=== PATIENT | male | born 1940 | race Caucasian/White ===

== ENCOUNTER 2017-01-12 19:57 | Inpatient (IN) | payer MEDICARE, BC ==
[~2017-01-12] VITALS: Ht 180.3 cm; Wt 99.5 kg
--- NOTE | ~2017-01-12 | DS ---
PATIENT'S NAME: YANICK WEATHERS [facility] AGE: 76 Y [address] ROOM: [address] [place], [place] [address] LOCATION: GPCU ADMIT DATE: 01/14/2017 Discharge Summary DISCHARGE DATE: 01/17/2017 FAMILY PHYSICIAN: Lashawn Vargas PA-C ATTENDING PHYSICIAN: Humphrey Schmidt DISCHARGE DIAGNOSES: 1. Wide-complex tachycardia. 2. High-risk medication in the form of Mexitil. 3. Atrial fibrillation. 4. Long-term anticoagulation. 5. Coronary artery disease. 6. Paroxysmal atrial fibrillation. 7. Hyperlipidemia. PROCEDURES: Echocardiogram done on 01/13/2017, EF 50% to 55%, mild to moderate mitral valve regurgitation, moderate tricuspid regurgitation, mild pulmonary hypertension. DC cardioversion for ventricular tachycardia on 01/12/2017. HOSPITAL COURSE: This is a 76-year-old gentleman with a history of coronary artery disease and atrial fibrillation. He was admitted from his home [facility] when he was not feeling well. He denied any chest pain or shortness of breath with it, but he was found to be little lightheaded, and his EKG showed a wide-complex tachycardia, consistent with ventricular tachycardia. He was then transferred to [facility] for more definitive care. He was initially admitted as observation and was started on a Cardizem infusion at 5 mg an hour and then amiodarone 150 mg IV over 10 minutes, followed by the protocol infusion. He converted to a normal sinus rhythm, and then a few hours later converted back into the wide-complex tachycardia. The amiodarone with then increased to 1 mg/hour continuously, and he was placed n.p.o. He did undergo a DC cardioversion on 01/14/2017, and he did revert back into a normal sinus rhythm. Later on that day, he did go back into wide- complex tachycardia, ventricular tachycardia. He was given intermittent boluses of Lopressor IV, and eventually was also initiated on mexiletine 150 mg p.o. t.i.d. The amiodarone drip was also continued at 0.5 mg/minutes and then discontinued, and he was placed on 200 mg p.o. every day. He was having intermittent VT alternating with sinus rhythm after these medications were initiated. Electrolytes were monitored and potassium was replaced. He eventually went into a sinus rhythm but continued to have intermittent bouts of ventricular tachycardia, that were not as long in duration as they had been. On 01/17/2017, he was discharged to home with the following medications. PATIENT'S NAME: YANICK WEATHERS [facility] AGE: 76 Y [address] ROOM: [place] [address] LOCATION: GPCU ADMIT DATE: 01/14/2017 Discharge Summary DISCHARGE DATE: 01/17/2017 FAMILY PHYSICIAN: Lashawn Vargas PA-C ATTENDING PHYSICIAN: Humphrey Schmidt MEDICATIONS: 1. Amiodarone 200 mg every day. 2. Finasteride 5 mg every day. 3. Metoprolol 25 mg every day. 4. Furosemide 20 mg daily. 5. [place]-3 fatty acid one capsule every day. 6. Warfarin 2 mg once a week and 4 mg the rest of the time. 7. Tramadol 50 mg b.i.d. 8. Atorvastatin 40 mg every day. 9. Omeprazole 20 mg every day. 10. Docusate sodium 100 mg twice a day. 11. Mexiletine 150 mg 3 times a day. 12. Potassium chloride 10 mEq tablets. He is to take 2 of them daily. He is to follow up with Dr. Schmidt in [place] on January 27, 2017. The patient did verbalize understanding of his dismissal instructions. JOHN WALKER APRN FOR MD PAOLA CALHOUN/lyndseyl /[id number] d: 01/31/17216 t: 02/06/17 0931, DISCHARGE SUMMARY
--- NOTE | ~2017-01-12 | ECHO ---
Transthoracic Echocardiography Report (TTE) Demographics Patient Name YANICK WEATHERS Date of Study 01/13/2017 Patient Number [id number] Visit Number [id number] Date of 1940 Room Number G6336 Accession Number [id number] Gender Male Age 76 year(s) Referring Roxana Yin MD [employer] Instrument Repairer Pato Azul Physician Physician Interpreting Roxana Yin MD [employer] Water Filler Physician Supervising Ordering Physician Roxana Yin MD, MD/P Nurse Stress Retail Delivery Driver Conclusions Contractility Score Summary Global Left Ventricular Hypokinesis was noted. Summary The estimated left ventricular ejection fraction is 50-55%. Moderate concentric left ventricular hypertrophy. Diastolic function indeterminate due to patient's arrhythmia. The left atrium is mildly dilated. The right atrium is mild to moderately dilated. Mild-moderate mitral regurgitation by color Doppler. There is mild aortic regurgitation by color Doppler. Moderate tricuspid regurgitation by color Doppler. There is mild pulmonary hypertension. The pulmonary pressure (RVSP) is 44 mmHg. Procedure Type of Study TTE procedure:2D Echocardiogram, M-Mode, Doppler , Color Doppler. Procedure Date Date: 01/13/2017 Start: 09:25 AM Study Location: Inpatient Portable Technical Quality: Adequate visualization Indications:Atrial Fibrillation w/ RVR. Appropriate Use Criteria: 9 Patient Status: Routine HR: 49 bpm BP: 115/75 mmHg Allergies - No known allergies. M-Mode/2D Measurements LV Diastolic Dimension: 4.55 cm LV Systolic Dimension: 3.15 cm LV Septum Diastolic: 1.48 cm LV PW Diastolic: 1.45 cm AO Root Dimension: 3 cm Cardiac Output: 3.35 l/min LA Dimension: 3.7 cm EF Estimated: 45 % LVOT: 2.2 cm LVOT VTI: 18 cm RV Base: 2.72 cm LV Stroke volume: 68.39 ml RV Length: 7.69 cm TAPSE: 1.71 cm TDI-S': 10.4 cm/s Doppler Measurements AV Peak Velocity: 0.94 m/s MV Peak E-Wave: 0.83 m/s AV Peak Gradient: 3.51 mmHg AV Mean Gradient: 2 mmHg MV P1/2t: 48 msec LVOT Peak Velocity: 0.89 m/s TR Velocity:3.19 m/s PV Peak Velocity: 0.75 m/s TR Gradient:40.7 mmHg PV Peak Gradient: 2.26 mmHg Estimated RAP:3 mmHg Estimated PASP: 43.7 mmHg Estimated RVSP: 44 mmHg A' Septal Velocity: 0.06 m/s E' Septal Velocity: 0.04 m/s E' Lateral Velocity: 0.09 m/s Findings Left Ventricle The left ventricle is normal in size . Moderate concentric left ventricular hypertrophy. Diastolic function indeterminate due to patient's arrhythmia. Right Ventricle Normal right ventricle structure and function. Left Atrium The left atrium is mildly dilated. Right Atrium The right atrium is mild to moderately dilated. IVC measures 2.12 cm with inspiratory collapse. Mitral Valve Mild-moderate mitral regurgitation by color Doppler. Mild mitral annular calcification. Mild calcification of the mitral valve. Aortic Valve The aortic valve is mildly sclerotic. There is mild aortic regurgitation by color Doppler. Tricuspid Valve Moderate tricuspid regurgitation by color Doppler. There is mild pulmonary hypertension. The pulmonary pressure (RVSP) is 44 mmHg. Pulmonic Valve Normal pulmonic valve structure and function. Pericardial Effusion No evidence of pericardial effusion. Miscellaneous Visualized portions of the aortic root and ascending aorta appear normal in size. Pleural Effusion No evidence of pleural effusion. Contractility Score LV regional wall motion:(0-Non visualized 1-Normal 2-Hypokinesis 3-Akinesis 4-Dyskinesis 5-Aneurysm) Signature dtt: Humphrey Schmidt (cardio) dtd: 01/13/17 0925 Physician Self Edit
--- NOTE | ~2017-01-12 | HP ---
PATIENT'S NAME: YANICK WEATHERS [facility] AGE: 76 Y [address] ROOM: [place] [address] LOCATION: GPCU ADMIT DATE: 01/12/2017 History & Physical DISCHARGE DATE: FAMILY PHYSICIAN: Lashawn Vargas PA-C ATTENDING PHYSICIAN: Humphrey Corado DATE OF SERVICE: HISTORY OF PRESENT ILLNESS: This is a 76-year-old gentleman well known to Dr. Corado with a history of coronary artery disease and atrial fibrillation. He presented to the emergency room on the day of admission with not feeling well. He was very cold and clammy. He denied any chest pain or shortness of breath, but he was a little bit lightheaded but denied any presyncope. He had an EKG done which showed white complex tachycardia consistent with ventricular tachycardia. Therefore, he was transferred to [facility] for further evaluation. Last June, he had an echocardiogram and a heart cath with normal coronaries and normal LV function. He has had a history of ischemic cardiomyopathy, but his EF normalized. PAST MEDICAL HISTORY: 1. Coronary artery disease. 2. Hypertension. 3. Paroxysmal atrial fibrillation. 4. Ischemic cardiomyopathy. 5. Hyperlipidemia. 6. Daytime hypersomnolence with a normal sleep study. 7. High-risk medications in the form of amiodarone. 8. Gastroesophageal reflux. 9. Long-term anticoagulation on warfarin. PAST SURGICAL HISTORY: 1. Left inguinal hernia repair. 2. Left heart catheterization with PTCA stent LAD in 2004, left heart catheterization January of 2012, left heart catheterization July 01, 2016, DC cardioversion 08/18/2016. 3. Large posterior subcutaneous scalp mass removal 03/2015. 4. Right total knee 07/10/2014. ALLERGIES: NONE TO MEDICATION. CURRENT MEDICATIONS: PATIENT'S NAME: YANICK WEATHERS [facility] AGE: 76 Y [address] ROOM: [place] [address] LOCATION: GPCU ADMIT DATE: 01/12/2017 History & Physical DISCHARGE DATE: FAMILY PHYSICIAN: Lashawn Vargas PA-C ATTENDING PHYSICIAN: Humphrey Corado 1. Amiodarone 200 mg p.o. daily now on IV amiodarone. 2. Lipitor 40 mg every day. 3. Docusate sodium 100 mg p.o. b.i.d. 4. Proscar 5 mg daily. 5. Lasix 10 mg b.i.d. 6. Metoprolol tartrate 25 mg daily. 7. [place]-3 fatty acids daily. 8. Omeprazole 20 mg daily. 9. Tramadol 50 mg p.o. b.i.d. p.r.n. 10. Warfarin 4 mg six days a week and 2 mg one day a week. SOCIAL HISTORY: He is . He denies alcohol use. He has a remote tobacco use. He would smoke 3 packs of cigarettes a day for 50 years. He quit in 1999. FAMILY HISTORY: Mother had heart disease and CVA at an older age. Father had alcoholism. He had a brother with heart disease as well. REVIEW OF SYSTEMS: GENERAL: He has been having problems with increased fatigue. HEAD: No history of headaches. EYES: He wears corrective lenses. EARS: No problems with hearing. NOSE: No epistaxis or rhinorrhea. MOUTH: No gingival bleeding. THROAT: Denies sore throat, hoarseness, or difficulty swallowing. He does have a full set of dentures. PULMONARY: No history of cough or hemoptysis. GASTROINTESTINAL: Negative for nausea, vomiting, diarrhea. No melena. No history of elevated liver enzymes or yellow jaundice. GENITOURINARY: He has problems with BPH and nocturia 2 times at night. MUSCULOSKELETAL: No complaints of arthralgias or myalgias on statin therapy. NEUROLOGIC: He denies TIA or CVA symptomatology. PHYSICAL EXAMINATION: VITAL SIGNS: He is 5 feet 11 inches. His weight was 216. Blood pressure is 127/87, his heart rate is 158. SKIN: Cool and dry. LUNGS: Sounds are clear without evidence of wheezes, rales, or rhonchi. CV: Tachy with regular rhythm without murmur. EXTREMITIES: Show no peripheral edema. ASSESSMENT: 1. Ventricular tachycardia. We are going to start him on Cardizem and IV PATIENT'S NAME: YANICK WEATHERS [facility] AGE: 76 Y [address] ROOM: [place] [address] LOCATION: [facility] ADMIT DATE: 01/12/2017 History & Physical DISCHARGE DATE: FAMILY PHYSICIAN: Lashawn Vargas PA-C ATTENDING PHYSICIAN: Humphrey Corado amiodarone. We will check a mag level as well. His potassium was 4.0. If he does not convert through the night, we will plan on a DC cardioversion. 2. Coronary artery disease. He is to continue with his current medications as outlined above. 3. Hypertension: His blood pressure is under pretty good control. We will continue same medications. The assessment, plan, history of present illness, and physical exam are per Dr. Jose M Corado. We would like to thank Mer Reid for allowing us to participate in the patient's care. JOHN WALKER APRN FOR HUMPHREY CORADO MD TGP/modl /[id number] D: [id number] T: [id number] HISTORY & PHYSICAL
--- NOTE | ~2017-01-12 | OR ---
PATIENT'S NAME: YANICK WEATHERS [facility] AGE: 76 Y [address] ROOM: [place] [address] LOCATION: GPCU ADMIT DATE: 01/12/2017 OR/Procedure Report DISCHARGE DATE: FAMILY PHYSICIAN: Lashawn Vargas PA-C ATTENDING PHYSICIAN: Humphrey Schmidt SURGEON: Jessica Hobbs MD GOVERNMENT AFFAIRS SPECIALIST: DATE OF PROCEDURE: 01/14/2017 INDICATIONS: Ventricular tachycardia with rates in the 150s. Continues to remain in VT despite iv amiodarone/betablocker therapy. PROCEDURE PERFORMED: The patient was brought to the [facility] lap. Anesthesia provided sedation with propofol. Once the patient was adequately sedated, pads were placed in the anterior-posterior position and he received synchronized cardioversion at 200 joules x1 attempt and that converted him to normal sinus rhythm from VT at 150 bpm. IMPRESSION: Ventricular tachycardia since am today with rates in 150's, status post direct current cardioversion with synchronized cardioversion at 200 joules x1 attempt with successful conversion to normal sinus rhythm. Please continue warfarin for atrial fibrillation. Continue amiodarone drip at 0.5 mg/minute for another 18 hours. The patient tolerated the procedure well without any acute complications. Thank you Dr. Schmidt for allowing us to participate in the care of Mr. Weathers. JESSICA HOBBS MD AT/modl /[id number] PATIENT'S NAME: YANICK WEATHERS [facility] AGE: 76 Y [address] ROOM: [place] [address] LOCATION: GPCU ADMIT DATE: 01/12/2017 OR/Procedure Report DISCHARGE DATE: FAMILY PHYSICIAN: Lashawn Vargas PA-C ATTENDING PHYSICIAN: Humphrey Schmidt CC: Humphrey Schmidt MD d: 01/14/17 0927 t: 04/27/17 1233, OPERATIVE SUMMARY
[~2017-01-12 19:57] MED LIST changes: -COLACE100 MG PO; -COREG 3.1253.125 MG PO; -LEVOTHROID (SY50 MCG PO; -MAG-OX-400(241400 MG PO; -MEXITIL150 MG PO; -POTASSIUM CHLO20 ME1 PO
[2017-01-12] MEDS ORDERED: PRILOSEC20 MG PO (21:55)
[2017-01-12] MEDS ORDERED: COLACE100 MG PO (21:57)
[2017-01-13 00:02] LABS: MAGNESIUM 2.1 mg/dL (1.8-2.6)
--- NOTE | 2017-01-13 00:18 | NUR ---
Patient admitted to PCU from [facility] for ventricular tachycardia. Patient is A/Ox3 and asymptomatic aside from some diaphoresis. Vitals upon arrival were: 98.1 temp, 127/87/103, 158bpm, 98% on 2L NC, 18 respirations. Patient has no complaints of chest pain or any other pain. Patient was receiving cardizem and amiodarone en route which was resumed with Dr. Schmidt's orders. IVs in both hands have good blood return. Patient is a 1 person assist but is currently on bedrest with use of commode. Dr. Schmidt plans to cardiovert the patient in the AM if the medications do not flip him back into NSR.
[2017-01-13 05:19] LABS: ALBUMIN 3.6 gm/dL (3.5-5.0); TOTAL PROTEIN 7.3 g/dL (6.0-8.4)
--- NOTE | 2017-01-13 05:28 | NUR ---
Significant Event: Patient admitted with ventricular tachycardia. Asymptomatic aside from diaphoresis. Cardizem, amiodarone, and heparin gtts initiated. Patient did get up to the bedside commode once and felt lightheaded with this activity. Around 0300 patient converted to SR with frequent PVC's and a 1st degree block. Rates 40s-50s. Patient is also asymptomatic with the bradycardia. Dr. Schmidt notified, cardizem d/c'd, amiodarone decreased to 0.5mg early. Rates remain 40s-50s. Follow up: Amiodarone gtt off at 2230 this evening unless orders received before.
--- NOTE | 2017-01-13 11:44 | NUR ---
Introduced self and role of care management to patient. He lives with his in [facility]. He states that he is able to do all his own ADL's. He states that his does assist if needed. He plans on returning home on discharge. He denies any needs at this time. Will continue to follow.
--- NOTE | 2017-01-13 17:46 | NUR ---
PATIENT WAS ON 2 LITERS O2 THIS MORNING, BUT WE TOOK HIM OFF AT 1210 AND HE IS CURRENTLY ON RA. PATIENT REPORTS HE HAD A SMALL BM TODAY AND VOIDED AT THE SAME TIME. PATIENT WAS ON HEPARIN AND AMIO GTT THIS MORNING, AND IT WAS DC'S AT 0930. PATIENT IS CURRENTLY SALINE LOCKED. PATIENT GETS UP ADLIB. HR HAS BEEN IN THE HIGH 40'S AND LOW 50'S ALL DAY. PATIENT IS CURRENTLY UP IN HIS CHAIR WATCHING TV. PATIENT ATE A LATE BREAKFAST, SO HE SKIPPED LUNCH. PATIENT HAD AN ECHO BEFORE BREAKFAST.
[2017-01-14 05:06] LABS: ALBUMIN 3.4 gm/dL (3.5-5.0); ANION GAP 12.1 (10.0-19.0); CALCIUM 8.2 mg/dL (8.5-10.5); CREATININE 1.3 mg/dL (0.6-1.3); POTASSIUM 4.1 mMol/L (3.7-5.1)
[2017-01-14 05:07] LABS: PHOSPHORUS 1.8 mg/dL (2.5-4.9)
--- NOTE | 2017-01-14 05:15 | NUR ---
Significant Event: PATIENT IS A/O X3. VSS. HR 50-140'S. SBP 100-140'S. AFEBRILE. 02 SATS IN MID 90'S ON RA. NO C/O PAIN. AT 0200 STARTED TO HAVE BEATS OF WIDE COMPLEX TACHYCARDIA. RHYTHM SUSTAIN AND HR IN 130'S STARTING AT 0349. DR CORADO NOTIFIED AND EKG OBTAINED AND STARTED BACK ON IV AMIODARONE. UP WITH SBA. BOWELS ACTIVE. VOIDS PER URINAL. HAS SOME URINARY RETENTION. IV'S TO RIGHT AND LEFT HANDS. AMIODARONE AT 1MG/MIN TO RIGHT HAND X6 HRS. Follow up: CONTINUE TO MONITOR. LIKELY TO STAY ANOTHER NIGHT.
--- NOTE | 2017-01-14 16:47 | NUR ---
A/Ox3. VSS on RA. Lungs clear. Cardioversion this am to correct wide complex tachy, SR immediately following cardioversion. Shortly after, pt went back into wide complex tachy and was on and off throughout the day. At 1500, pt went back into SR and has been renae SR ever since. Voiding per urinal with adequate UOP. Large liquidy BM's x2 this shift. Up SB assist. IV to L hand running amio gtt.
--- NOTE | 2017-01-15 05:17 | NUR ---
Significant Event: PATIENT IS A/O X3. VSS. HR 50-130'S. SBP 110-150'S. AFEBRILE. 02 SATS IN LOW TO MID 90'S ON RA. NO C/O PAIN. LUNGS CLEAR THROUHGOUT. UP WITH SBA. BOWELS ACTIVE. VOID PER URINAL. LEFT HAND IV WITH AMIODARONE AT 0.5 MG/MIN. STAY IN SR MOST OF SHIFT WITH OCCASIONAL SPURTS OF WIDE COMPLEX TACHY. Follow up: CONTINUE TO MONITOR. POSSIBLE TRANSFER OUT TODAY?
--- NOTE | 2017-01-15 17:14 | NUR ---
A/Ox3. VSS on RA. In and out of wide complex tachy throughout the day, longest duration was 2 hours. Mexiletene PO ordered by Dr. Schmidt for arrhythmia. Voiding per urinal with adequate UOP. Soft BMs x2 this shift. Up SB assist. IV to R anterior FA running amio gtt. Follow up: Monitor. Waiting for possible transfer.
--- NOTE | 2017-01-16 05:22 | NUR ---
Significant Event: PATIENT IS A/O X3. VSS. HR 50-130'S. SBP 90-140'S. AFEBRILE. 02 SATS IN LOW TO MID 90'S ON RA. NO C/O PAIN. LUNGS CLEAR/DIM THROUGHOUT. UP WITH SBA. BOWELS ACTIVE. VOIDS PER URINAL. RIGHT FOREARM IV WITH AMIODARONE GOING AT 0.5MCG UNTIL PHYSIICAN SEES IN AM. Follow up: CONTINUE TO MONITOR.
[2017-01-16 07:00] LABS: ANION GAP 12.4 (10.0-19.0); BLOOD UREA NITROGEN 23 mg/dL (6-24); CALCIUM 8.4 mg/dL (8.5-10.5); CHLORIDE 108 mMol/L (96-110); CO2 22 mMol/L (22-32); ESTIMATED GFR (MDRD EQUATION) > 60; MAGNESIUM 2.1 mg/dL (1.8-2.6); PHOSPHORUS 2.5 mg/dL (2.5-4.9); POTASSIUM 3.4 mMol/L (3.7-5.1); SODIUM 139 mMol/L (135-145)
[2017-01-16 11:01] LABS: INR - (THERAPEUTIC) 1.87 (0.92-1.07); PROTIME 19.8 SECONDS (9.8-11.4)
--- NOTE | 2017-01-16 16:04 | NUR ---
Significant Event: PT A/O X3. VSS. ON RA SATS >90%. AT BEGINNING OF SHIFT PATIENT REMAINED IN WIDE COMPLEX TACHYCARDIA RHYTHM, MID MORNING CONVERTED TO SINUS KHRIS AND HAS BEEN THERE EVER SINCE. DC'D AMIODARONE GTT AND STARTED PO AMIODARONE.INR 1.8 TODAY, WILL GIVE A TOTAL OF 6MG OF COUMADIN. GAVE 40MEQ PO K+ FOR A K+ OF 3.4. IV TO RA FOREARM INFLITRATED AMIODARONE, NEW IV STARTED IN L) FOREARM, IS NOW SALINE LOCKED. ICE PACKS TO BILATERAL INFILTRATES OFF AND ON THROUGHOUT THIS SHIFT. UP IN ROOM AND IN GOYAL. VERY PLEASANT AND COOPERATIVE WITH CARES. Follow up: POSSIBLE DC TO HOME TOMORROW? BROTHER IN LAW WILL BE ABLE TO COME AND BLAST FURNACE KEEPER HELPER.
--- NOTE | 2017-01-17 04:29 | NUR ---
A/O. HR 50s. 1 EPISOIDE ARRHYTHMIA FOR ABOUT 5MIN THEN SELF CONVERTED. SBP 110-150s. AFEBRILE. DENIES PAIN. UP SBA TO BATHROOM. PATIENT REPORT BMx1. POSSIBLE DISMISSAL TODAY.
[2017-01-17 04:38] LABS: TOTAL PROTEIN 6.5 g/dL (6.0-8.4)
[2017-01-17 04:42] LABS: TOTAL BILIRUBIN 0.6 mg/dL (0.0-1.5)
[2017-01-17] MEDS ORDERED: MEXITIL150 MG PO (10:10)
[2017-01-17] MEDS ORDERED: POTASSIUM CHLO20 ME1 PO (10:13)
--- NOTE | 2017-01-17 12:49 | NUR ---
PATIENT A/OX3, VSS ON ROOM AIR. PT. UP AD DAVON IN ROOM. PT. HAD SEVERAL EPISODES OF TACHYCARDIA THIS AM HR'S UP TO 110'S, THEN WENT INTO HIS WIDE COMPLEX VT RHYTHM FROM [id number] WITH HR'S UP TO 130'S, THEN BACK TO SINUS KHRIS, DID HAVE 1 QUICK EPISODE AFTER THIS OF THE VT, THEN WENT BACK TO SB RIGHT AWAY, NO EPISODES SINCE, DR. CORADO CALLED AT 1200 AND SAID IT WAS OKAY FOR PATIENT TO D/C TO HOME. PT. DID WALK IN HALLS X1 THIS AM. NEW MEDICATIONS, DISMISSAL INSTRUCTIONS GONE OVER WITH PATIENT AND , NO FURTHER QUESTIONS AT THIS TIME. IV REMOVED FROM LEFT FA WITHOUT DIFFICLTLY. ALL BELONGINGS SENT HOME WITH PATIENT.
== END 2017-01-17 12:25 | disposition disaster alternative care site (69) | DRG 310 ==
LOC: GPCU 19:57
PROVIDERS: Nurse Practitioner Acute Care; ADMIT Internal Medicine Interventional Cardiology
PROC: 5A2204Z Restoration of Cardiac Rhythm, Single (ICD-10-PCS; principal; 2017-01-14)
DX: I47.2 Ventricular tachycardia (principal); I25.5 Ischemic cardiomyopathy; I10 Essential (primary) hypertension; I25.10 Atherosclerotic heart disease of native coronary artery without angina pectoris; I48.0 Paroxysmal atrial fibrillation; E78.5 Hyperlipidemia, unspecified; K21.9 Gastro-esophageal reflux disease without esophagitis; Z79.01 Long term (current) use of anticoagulants; Z87.891 Personal history of nicotine dependence
CPT/HCPCS: G0378; J0282; J1644; J7030; J7050

== ENCOUNTER → 2017-01-12 | Outpatient (CLI) | payer MEDICARE, BC ==
[~2017-01-12] MED LIST: ASPIRIN LO-DOSE81 MG PO; COLACE100 MG PO; CORDARONE,PACE200 MG PO; COREG 3.1253.125 MG PO; COUMADIN ** 9/62 MG PO; COUMADIN 4MG **4 MG PO; FISH OIL1000 MG PO; LASIX20 MG PO; LEVOTHROID (SY50 MCG PO; LIPITOR40 MG PO; LOPRESSOR25 MG PO; MAG-OX-400(241400 MG PO; MEXITIL150 MG PO; MONOPRIL10 MG PO; POTASSIUM CHLO20 ME1 PO; PRILOSEC20 MG PO; PROSCAR5 MG PO; STOOL SOFTENER100 MG PO; TRICOR 160 MG160 MG PO; ULTRAM50 MG PO; ZOCOR40 MG PO
== END | disposition disaster alternative care site (69) ==
LOC: GAMB 21:10
DX: I47.1 Supraventricular tachycardia (principal)
CPT/HCPCS: A0425; A0428

== ENCOUNTER 2017-02-15 10:00 | Inpatient (IN) | payer MEDICARE, BC ==
[~2017-02-15] VITALS: Ht 180.3 cm; Wt 98.5 kg
--- NOTE | ~2017-02-15 | CON ---
PATIENT'S NAME: YANICK WEATHERS [facility] AGE: 76 Y [address] ROOM: [place] [address] [facility] ADMIT DATE: 02/15/2017 Consultation DISCHARGE DATE: FAMILY PHYSICIAN: Lashawn Vargas PA-C ATTENDING PHYSICIAN: Meet CORTEZ REFERRING PHYSICIAN: JAMAR GATES MD CARDIOLOGY CONSULT REFERRING PHYSICIAN: Dr. Cortez. REASON FOR CONSULT: Ventricular tachycardia. HISTORY OF PRESENT ILLNESS: Mr. Weathers is a pleasant 76-year-old male with history of ventricular tachycardia. The patient was previously also hospitalized for ventricular tachycardia. The patient has had repeated cardiac catheterizations. He stated that in 2004, he had balloon angioplasty, and subsequently, he had cardiac catheterization in January of 2012 and in June 2016, which showed mild nonobstructive coronary artery disease. The patient stated that today at 3:00 a.m., he woke up, and his heart rate was 174 beats per minute. He took medications, then his heart rate decreased to 80s and later again his heart rate was in 170s, and at around 6:00 a.m., he woke up his , and 911 was called, and he was taken to [place] [facility]. He was found to be in wide- complex tachycardia, and the patient was given adenosine with no response. I spoke with the ER physician, and in view of his blood pressure dropping, we advised DC cardioversion. Following DC cardioversion, his rhythm changed to sinus rhythm, and he was brought here for further management. Presently, he is asymptomatic. gambling monitor is showing frequent PVCs. REVIEW OF SYSTEMS: The patient denied any recent change in vision. No history of nausea or vomiting. History of diarrhea is present. No history of fever. History of sweating is present. No history of syncope or presyncope. No history of chest pain. Review of other systems is essentially negative. PAST MEDICAL HISTORY: Coronary artery disease, hypertension, paroxysmal atrial fibrillation, gastroesophageal reflux disease, long-term anticoagulation with warfarin. PAST SURGICAL HISTORY: Left inguinal hernia repair and right total knee replacement. CURRENT MEDICATIONS: PATIENT'S NAME: YANICK WEATHERS [facility] AGE: 76 Y [address] ROOM: [place] [id number] LOCATION: [facility]U ADMIT DATE: 02/15/2017 Consultation DISCHARGE DATE: FAMILY PHYSICIAN: Lashawn Vargas PA-C ATTENDING PHYSICIAN: Meet CORTEZ Please see MAR. His cardiac medications include: 1. Amiodarone 200 mg daily. 2. Atorvastatin 40 mg daily. 3. Carvedilol 3.125 mg twice daily. 4. Furosemide 10 mg twice daily. 5. Levothyroxine 50 mcg daily. 6. Metoprolol 25 mg daily. 7. Potassium 20 mEq daily. 8. Warfarin 2 mg daily and 4 mg 6 times a week. FAMILY HISTORY: His brother has heart disease and his mother had a stroke. SOCIAL HISTORY: The patient is . He lives with his . He has remote tobacco use. No alcohol use. PHYSICAL EXAMINATION: GENERAL: He is awake, alert, and oriented, in no distress. VITAL SIGNS: His pulse rate is 58 beats per minute, blood pressure is 136/69 mmHg, temperature 97.8, respiratory rate 16. HEENT: His head is atraumatic and normocephalic. Tongue is moist. NECK: No significant jugular venous distention is present. CARDIOVASCULAR: S1, S2 are audible. They are regular in rate and rhythm. Grade 2/6 ejection systolic murmur is audible. RESPIRATORY: Bilateral vesicular breath sounds are audible with no adventitious sounds. ABDOMEN: Mildly distended. Soft. Nontender. Bowel sounds are present. EXTREMITIES: Showed no significant pedal edema. NEUROLOGIC: The patient is awake, alert, and oriented. No focal neurological deficits noted. SKIN: Warm and dry. LABORATORY DATA: Sodium 144, potassium 4.3, chloride 111, CO2 of 25, calcium 8.4, BUN 15, creatinine 1.2. AST 43, ALT 60, magnesium 2.1. IMAGING DATA: His last echocardiogram in December 2014 showed left ventricular ejection fraction of 50% to 55%. Moderate concentric LVH. Mild to moderate mitral regurgitation. Mild aortic regurgitation. Moderate tricuspid regurgitation. Mild pulmonary hypertension. Cardiac catheterization in June 2016 showed mild nonobstructive coronary artery disease. ASSESSMENT AND PLAN: PATIENT'S NAME: YANICK WEATHERS [facility] AGE: 76 Y [address] ROOM: [address] [address] LOCATION: [facility]PCU ADMIT DATE: 02/15/2017 Consultation DISCHARGE DATE: FAMILY PHYSICIAN: Lashawn Vargas PA-C ATTENDING PHYSICIAN: Meet CORTEZ 1. Wide-complex tachycardia at 170 beats per minute, likely ventricular tachycardia, status post cardioversion. The patient is on amiodarone 200 mg p.o. daily. Per nursing, the patient received amiodarone bolus there. We will start the patient on IV amiodarone drip. Monitor QTc interval. His telemetry presently shows frequent PVCs. His EKG showed prolonged [place] interval. The patient is on metoprolol and carvedilol. We will hold beta blockers in view of resting bradycardia. We will monitor magnesium and potassium levels and keep magnesium levels more than 2 and potassium level more than 4 mEq per liter. 2. Nonobstructive coronary artery disease. Continue medical therapy. We will start the patient on aspirin 81 mg daily. Continue statins. Restart beta blockers gradually as tolerated. 3. Paroxysmal atrial fibrillation. Continue anticoagulation. The plan of care was discussed with the patient and the nursing staff, and the patient's and the hospitalist team. We will follow the patient along with you, and Dr. Schmidt's team will assume care from Thursday a.m. MD LESLI MOHR/natalia /[id number] d: 02/15/[id number] t: 03/05/17 1733, CONSULTATION REPORT
--- NOTE | ~2017-02-15 | ECHO ---
Transthoracic Echocardiography Report (TTE) Demographics Patient Name YANICK WEATHERS Date of Study 02/17/2017 Patient Number [id number] Visit Number [id number] Date of 1940 Room Number G6306 Accession Number [id number] Gender Male Age 76 year(s) Referring Alicia PINEDO [employer] Manager Debbie Renae RVT, Physician RDCS Physician Interpreting Roxana Yin MD Lace Pinner Physician Supervising Ordering Physician Dana Dsouza MD/MLP Nurse Stress Certified Control Systems Technician Conclusions Summary The estimated left ventricular ejection fraction is 50%. Mild concentric left ventricular hypertrophy. Diastolic function indeterminate due to patient's arrhythmia. Mildly dilated right ventricle with normal function. The left atrium is mildly dilated. The right atrium is moderately dilated. Mild mitral annular calcification. Mild-moderate mitral regurgitation by color Doppler. There is mild aortic regurgitation by color Doppler. Moderate tricuspid regurgitation by color Doppler. There is severe pulmonary hypertension. The pulmonary pressure (RVSP) is 57 mmHg. Procedure Type of Study TTE procedure:2D Echocardiogram. Procedure Date Date: 02/17/2017 Start: 02:11 PM Study Location: Inpatient Portable Technical Quality: Adequate visualization Indications:Ventricular tachycardia. Appropriate Use Criteria: 8 Patient Status: Routine Rhythm: NSR HR: 58 bpm BP: 135/70 mmHg Allergies - No known allergies. M-Mode/2D Measurements LV Diastolic Dimension: 4.48 cm LV Systolic Dimension: 3.31 cm LV Septum Diastolic: 1.48 cm LV PW Diastolic: 1.43 cm AO Root Dimension: 2.7 cm Cardiac Output: 3.37 l/min AV Cusp Separation: 2.4 cm RV Diastolic Dimension: 3.47 cm LA volume: 64 ml LVOT: 2.3 cm RV Base: 4.34 cm LVOT VTI: 14 cm RV Mid: 3.79 cm LV Stroke volume: 58.14 ml TAPSE: 2.42 cm TDI-S': 12.1 cm/s Doppler Measurements AV Peak Velocity: 1.01 m/s MV Peak E-Wave: 0.94 m/s AV Peak Gradient: 4.08 mmHg MV Peak A-Wave: 0.41 m/s AV Mean Gradient: 2 mmHg MV E/A Ratio: 2.29 LVOT Peak Velocity: 0.6 m/s MV P1/2t: 71 msec TR Gradient:52.42 mmHg PV Peak Velocity: 0.57 m/s Estimated RAP:5 mmHg PV Peak Gradient: 1.31 mmHg Estimated RVSP: 57 mmHg Estimated PASP: 57.42 mmHg E' Septal Velocity: 0.05 m/s A' Septal Velocity: 0.03 m/s E' Lateral Velocity: 0.1 m/s A' Lateral Velocity: 0.05 m/s Findings Left Ventricle Mild concentric left ventricular hypertrophy. Diastolic function indeterminate due to patient's arrhythmia. Right Ventricle Moderately dilated right ventricle. Left Atrium Normal left atrial size. Right Atrium The right atrium is moderately dilated. IVC measures 2.25 cm with inspiratory collapse. Mitral Valve Mild mitral annular calcification. Mild-moderate mitral regurgitation by color Doppler. Aortic Valve There is mild aortic regurgitation by color Doppler. Tricuspid Valve Moderate tricuspid regurgitation by color Doppler. There is severe pulmonary hypertension. The pulmonary pressure (RVSP) is 57 mmHg. Pulmonic Valve Normal pulmonic valve structure and function. Pericardial Effusion No evidence of pericardial effusion. Miscellaneous Visualized portions of the aortic root and ascending aorta appear normal in size. Pleural Effusion No evidence of pleural effusion. Contractility Score LV regional wall motion:(0-Non visualized 1-Normal 2-Hypokinesis 3-Akinesis 4-Dyskinesis 5-Aneurysm) Signature dtt: Humphrey Schmidt (cardio) dtd: 02/17/17 1411 Physician Self Edit
--- NOTE | ~2017-02-15 | DS ---
PATIENT'S NAME: YANICK WEATHERS [facility] AGE: 76 Y [address] ROOM: [address] [address] LOCATION: [facility]PCU ADMIT DATE: 02/15/2017 Discharge Summary DISCHARGE DATE: 02/19/2017 FAMILY PHYSICIAN: Lashawn Vargas PA-C ATTENDING PHYSICIAN: Meet CORTEZ FINAL DIAGNOSES: 1. Ventricular tachycardia. 2. Coronary artery disease. 3. Paroxysmal atrial fibrillation. 4. Long-term anticoagulation. 5. Essential hypertension. 6. Hypokalemia. 7. Nocturnal hypoxia. HISTORY OF PRESENT ILLNESS: Please see the history and physical dictated by Dr. Cortez for details of admission. In short, the patient was transferred from [place] after presenting with their hospital with v-tach. At the time of presentation, he was hemodynamically unstable, and had been shocked. LABORATORY DATA: On admission, sodium 144, discharge 139; potassium on admission was 4.3, discharge 3.9; BUN on admission was 15, discharge 20; creatinine on admission was 1.2, discharge 1. Liver enzymes were stable. Magnesium on admission was 2.1, got as low as 1.9, discharge 2.2. TSH on admission was 2.6. White blood cell count on February 17 was 7.9, hemoglobin 14, hematocrit 43, and platelet count 128. X-ray data, none. Echocardiogram showed that he had an ejection fraction of 50%. He had a mildly dilated right ventricle and severe pulmonary hypertension. HOSPITAL COURSE: The patient was admitted to PCU. Cardiology Dr. Valente was asked to see the patient. He was continued on his home anticoagulation. He was started on an amiodarone drip 1 mg/minute for 6 hours and then 0.5 mg/minute for 18 hours. He was also loaded with mexiletine. He receive that for 24 hours and then he was started on oral amiodarone. His potassium and magnesium were monitored and he was replaced. He was also started on a beta- mala. PT and OT were asked to see him. He continued to have episodes of v- tach, most of them were during the nights, he would spontaneously convert out of them. An overnight trend oximetry was done and did show that he had this significant nocturnal hypoxia. Arrangements were made for him to get home O2. It was felt that he was stable for discharge and discharged to home on February 19. He is to follow up with Dr. Schmidt next week when he is in [place]. He is to have a low sodium diet. MEDICATIONS: 1. Amiodarone 400 mg twice daily. PATIENT'S NAME: YANICK WEATHERS [facility] AGE: 76 Y [address] ROOM: [place] [address] LOCATION: GPCU ADMIT DATE: 02/15/2017 Discharge Summary DISCHARGE DATE: 02/19/2017 FAMILY PHYSICIAN: Lashawn Vargas PA-C ATTENDING PHYSICIAN: Meet CORTEZ 2. Lipitor 40 mg daily. 3. Proscar 5 mg daily. 4. Synthroid 50 mcg daily. 5. Mag oxide 400 mg daily. 6. Lopressor 25 mg twice daily. 7. Mexiletine 150 mg twice daily. 8. Potassium 20 mEq twice daily. 9. Fish oil a 1000 mg daily. 10. Colace 100 mg twice daily. 11. Warfarin 6 mg one day then 4 mg daily. DISCHARGE INSTRUCTIONS: Arrangements were made for the home O2. The patient was counseled that he may very well need a sleep study. I did discuss this with Dr. Nat Freeman as well. MAIDA BACK MD LAW/modl /[id number] d: 02/20/17 0249 t: 02/27/17 1834, DISCHARGE SUMMARY
--- NOTE | ~2017-02-15 | HP ---
PATIENT'S NAME: YANICK WEATHERS [facility] AGE: 76 Y [address] ROOM: [address] [place], [place] [address] [facility] ADMIT DATE: 02/15/2017 History & Physical DISCHARGE DATE: FAMILY PHYSICIAN: Lashawn Vargas PA-C ATTENDING PHYSICIAN: Meet RAMOS DATE OF SERVICE: CHIEF COMPLAINT: Ventricular tachycardia, sustained. HISTORY OF PRESENT ILLNESS: The patient is a 76-year-old gentleman with a past medical history of CAD, status post PCTA in 2003, hypertension, paroxysmal atrial fibrillation, nonsustained ventricular tachycardia and obstructive sleep apnea who presents here with sustained ventricular tachycardia. The patient reports that around 3:00 a.m., he got up to use the bathroom and he felt funny. He checked his heart rate and his heart rate was in the 170s. The patient reports that he rechecked his heart rate again a few hours later, and heart rate was in the 60s to 70s. However, the patient started feeling same symptoms again and rechecked his heart rate shortly afterwards. Heart rates were in the 170s again. The patient was trying to go to the emergency department with his . However, he felt sweaty and dizzy while changing his clothes. Ambulance was called and the patient was brought in to [facility]. In [facility], the patient was found to be in ventricular tachycardia. The patient was tried on amiodarone drip. However, blood pressure was noted to go down into systolic blood pressure in the 60s. The patient was given a trial of adenosine without improvement. [facility] was called and Dr. Valente was contacted about the patient. It was suggested for the patient to be cardioverted as he is symptomatic with borderline blood pressure. The patient had successful synchronized cardioversion with the use of ketamine and fentanyl with the use of 120 joules. The patient converted back to normal sinus rhythm and was transferred to our hospital for further care. Of note, the patient has a history of nonsustained ventricular tachycardia and has had coronary angiogram done in July 2016 which was unremarkable. The patient denies chest pain, shortness of breath, abdominal pain, fever, chills, nausea, vomiting, and productive cough. Of note, the patient reports of 3 episodes of loose stools. PAST MEDICAL HISTORY: 1. CAD. 2. Hypertension. PATIENT'S NAME: YANICK WEATHERS [facility] AGE: 76 Y [address] ROOM: [place] [address] LOCATION: [facility] ADMIT DATE: 02/15/2017 History & Physical DISCHARGE DATE: FAMILY PHYSICIAN: Lashawn Vargas PA-C ATTENDING PHYSICIAN: Meet RAMOS 3. Paroxysmal atrial fibrillation. 4. GERD. 5. Obstructive sleep apnea. 6. Nonsustained ventricular tachycardia. PAST SURGICAL HISTORY: Coronary angiogram, knee surgery including repair. FAMILY HISTORY: Mother has a history of stroke. Brother has a history of CAD. SOCIAL HISTORY: The patient is retired. He denies drinking and smoking. He has a history of distant tobacco use, last tobacco use 17 years ago. MEDICATION: Currently being reconciled. REVIEW OF SYSTEMS: All systems have been reviewed and are negative except for what I mentioned in the HPI. PHYSICAL EXAMINATION: VITAL SIGNS: Afebrile, blood pressure 136/69, heart rate 58, respiratory rate 14, saturating 92% on room air. GENERAL APPEARANCE: The patient is alert and awake, in no acute distress. HEAD: Normocephalic, atraumatic. EYES: Extraocular muscles intact. No discharge. EARS: No discharge. NOSE: No nasal discharge or congestion. CHEST: Clear to auscultation bilaterally. No rhonchi, wheezing, or rales. HEART: Bradycardia. No murmurs, rubs, or gallops heard. ABDOMEN: Soft, nontender. Bowel sounds present. SKIN: Warm to touch. EXTREMITIES: Distal pulses present. No edema. MUSCULOSKELETAL: Range of motion intact. CLINICAL SCIENCE CONSULTANT: Alert and oriented x3. Motor and sensory grossly intact. LABORATORY DATA: From [facility] shows white blood cell count of 9, hemoglobin of 16.3, and platelets of 171. Potassium 4.3, sodium 140, CO2 of 20, and creatinine of 1.3 with BUN of 15. EKG shows sinus renae with IA interval of 360 milliseconds with frequent PVCs with T-wave inversion in I and aVL; however, normal compared to last visit T- PATIENT'S NAME: YANICK WEATHERS [facility] AGE: 76 Y [address] ROOM: [place] [address] [facility] AD[facility] DATE: 02/15/2017 History & Physical DISCHARGE DATE: FAMILY PHYSICIAN: Lashawn Vargas PA-C ATTENDING PHYSICIAN: Meet RAMOS wave inversions with a QTc of 440. ASSESSMENT AND PLAN: 1. Ventricular tachycardia, sustained. The patient with a history of nonsustained ventricular tachycardia, now presenting with sustained ventricular tachycardia status post cardioversion. Currently patient sinus renae with 1st degree AV block with IA interval close to 360 milliseconds. Etiology most likely secondary to the patient's frequent nonsustained ventricular tachycardia. The patient has had ischemic workup done recently in July 2016 for the same issue which is for his nonsustained ventricular tachycardia. We will acquire echocardiogram to investigate the structural heart disease. We will hold beta-mala as the patient is in 1st degree AV block with significant IA interval. We will start the patient on increased dose of home medication of amiodarone to 400 mg t.i.d. We will keep the patient on telemonitor. We will place pad on the patient for possible cardioversion if he happens to have another sustained ventricular tachycardia. Discussed case with Dr. Valente. 2. Paroxysmal atrial fibrillation, currently in sinus. We will continue Coumadin. We will acquire INR. Pharmacy to dose INR. 3. History of coronary artery disease. We will continue statin, we are holding beta-mala due to significant 1st degree AV block. The patient currently asymptomatic. 4. Hypertension. Stable. Holding beta-mala for now due to IA prolongation. 5. Gastroesophageal reflux disease, continue PPI. I have personally reviewed the patient's medical record including but not limited to, blood work. Total time spent with the patient is greater than 70 minutes, more than 50% of the time spent in direct patient care and patient consultation. Case was reviewed with the patient and nursing staff. All questions were answered to patient's satisfaction. Case was also reviewed with Cardiology, Dr. Valente. MD ROSE MARIE BOWER/natalia /[id number] D: [id number] HISTORY & PHYSICAL
--- NOTE | ~2017-02-15 | PUL ---
PATIENT'S NAME: YANICK WEATHERS [facility] AGE: 76 Y [address] ROOM: [address] [address] LOCATION: GPCU ADMIT DATE: 02/15/2017 Pulmonary DISCHARGE DATE: FAMILY PHYSICIAN: Lashawn Vargas PA-C ATTENDING PHYSICIAN: Meet RAMOS NAME OF PROCEDURE: Overnight Trend Oximetry DATE OF PROCEDURE: February 17 to February 18, 2017 REASON FOR EXAM: Nocturnal hypoxemia RESULTS: The total recording time was 9 hours, 55 minutes, and 20 seconds, total valid sampling time was 9 hours, 46 minutes, and 24 seconds. The highest pulse was 104 beats per minute, the lowest pulse was 50 beats per minute, with mean pulse of 61 beats per minute. The highest SpO2 was 97%, the lowest SpO2 was 84% with mean of 91.3%. The time spent with SpO2 less than 89% was 1 hour, 11 minutes, and 16 seconds which is 12.2% of the total valid sampling time. The desaturation event index was 16.5. PHYSICIAN INTERPRETATION: The patient does meet Medicare criteria for nighttime oxygen. The desaturation index was 16 which may indicative of possible obstructive sleep apnea. Clinical correlation is recommended. Thank you for allowing me to participate in care of this patient. MD HERNANDEZ JUNIOR/lia /[id number] dtt: 03/02/17 1044 , Colton Garcai dtd: 02/19/17 1147
[~2017-02-15 10:00] MED LIST changes: +COLACE100 MG PO; +MEXITIL150 MG PO; +POTASSIUM CHLO20 ME1 PO
[2017-02-15] MEDS ORDERED: COREG 3.1253.125 MG PO (12:24)
[2017-02-15] MEDS ORDERED: LEVOTHROID (SY50 MCG PO (12:24)
[2017-02-15 14:13] LABS: INR - (THERAPEUTIC) 1.61 (0.92-1.07)
[2017-02-15 14:22] LABS: ALBUMIN 3.2 gm/dL (3.5-5.0); ANION GAP 12.3 (10.0-19.0); CALCIUM 8.4 mg/dL (8.5-10.5); CREATININE 1.2 mg/dL (0.6-1.3); MAGNESIUM 2.1 mg/dL (1.8-2.6); POTASSIUM 4.3 mMol/L (3.7-5.1); TOTAL BILIRUBIN 0.6 mg/dL (0.0-1.5); TOTAL PROTEIN 6.9 g/dL (6.0-8.4)
[2017-02-16 08:16] LABS: INR - (THERAPEUTIC) 1.78 (0.92-1.07); PROTIME 18.8 SECONDS (9.8-11.4)
[2017-02-16 08:26] LABS: ALBUMIN 3.3 gm/dL (3.5-5.0); ALK PHOS 78 IU/L (33-138); ALT 55 IU/L (12-78); ANION GAP 14.7 (10.0-19.0); AST 41 IU/L (10-40); BLOOD UREA NITROGEN 16 mg/dL (6-24); CALCIUM 8.3 mg/dL (8.5-10.5); CHLORIDE 109 mMol/L (96-110); CO2 22 mMol/L (22-32); ESTIMATED GFR (MDRD EQUATION) > 60; MAGNESIUM 2.2 mg/dL (1.8-2.6); POTASSIUM 3.7 mMol/L (3.7-5.1); SODIUM 142 mMol/L (135-145); TOTAL BILIRUBIN 0.7 mg/dL (0.0-1.5); TOTAL PROTEIN 7.1 g/dL (6.0-8.4)
[2017-02-17 04:48] LABS: BASOPHIL % 0.3 %; EOSINOPHIL % 0.1 %; IMMATURE GRANULOCYTE # 0.1 K/uL (0.0-0.3); IMMATURE GRANULOCYTE % 0.6 %; LYMPHOCYTE % 12.5 %; MCH 27.7 pg (27.0-34.0); MCHC 32.6 gm/dL (32.0-36.5); MONOCYTE # 0.7 K/uL (0.0-1.0); MONOCYTE % 9.3 %; NEUTROPHIL # (ANC) 6.1 K/uL (1.4-9.0); NEUTROPHIL % 77.2 %; NRBC % 0 /100WBC (0-0.00); PLATELET COUNT 128 K/uL (150-450); RBC 5.06 M/uL (3.50-5.50); WBC 7.9 K/uL (4.0-11.0)
[2017-02-17 04:59] LABS: INR - (THERAPEUTIC) 2.02 (0.92-1.07); PROTIME 21.4 SECONDS (9.8-11.4)
[2017-02-17 05:05] LABS: ALBUMIN 2.9 gm/dL (3.5-5.0); ALK PHOS 67 IU/L (33-138); ALT 41 IU/L (12-78); ANION GAP 14.1 (10.0-19.0); AST 33 IU/L (10-40); BLOOD UREA NITROGEN 15 mg/dL (6-24); CALCIUM 8.1 mg/dL (8.5-10.5); CHLORIDE 108 mMol/L (96-110); CO2 22 mMol/L (22-32); ESTIMATED GFR (MDRD EQUATION) > 60; MAGNESIUM 1.9 mg/dL (1.8-2.6); POTASSIUM 4.1 mMol/L (3.7-5.1); SODIUM 140 mMol/L (135-145); TOTAL PROTEIN 6.6 g/dL (6.0-8.4)
[2017-02-17 05:08] LABS: TOTAL BILIRUBIN 1.1 mg/dL (0.0-1.5)
[2017-02-18 05:05] LABS: INR - (THERAPEUTIC) 1.84 (0.92-1.07); PROTIME 19.4 SECONDS (9.8-11.4)
[2017-02-18 05:17] LABS: ALBUMIN 2.8 gm/dL (3.5-5.0); ALK PHOS 66 IU/L (33-138); ALT 33 IU/L (12-78); AST 30 IU/L (10-40); BLOOD UREA NITROGEN 15 mg/dL (6-24); CALCIUM 8.2 mg/dL (8.5-10.5); CHLORIDE 105 mMol/L (96-110); CO2 22 mMol/L (22-32); ESTIMATED GFR (MDRD EQUATION) > 60; MAGNESIUM 2.1 mg/dL (1.8-2.6); SODIUM 137 mMol/L (135-145); TOTAL BILIRUBIN 1.2 mg/dL (0.0-1.5); TOTAL PROTEIN 6.5 g/dL (6.0-8.4)
[2017-02-18 05:19] LABS: PHOSPHORUS 1.8 mg/dL (2.5-4.9)
[2017-02-19 06:25] LABS: INR - (THERAPEUTIC) 1.77 (0.92-1.07); PROTIME 18.7 SECONDS (9.8-11.4)
[2017-02-19 06:33] LABS: ALBUMIN 2.8 gm/dL (3.5-5.0); ANION GAP 11.9 (10.0-19.0); BLOOD UREA NITROGEN 20 mg/dL (6-24); CALCIUM 8.3 mg/dL (8.5-10.5); CHLORIDE 106 mMol/L (96-110); CO2 25 mMol/L (22-32); ESTIMATED GFR (MDRD EQUATION) > 60; PHOSPHORUS 2.6 mg/dL (2.5-4.9); POTASSIUM 3.9 mMol/L (3.7-5.1); SODIUM 139 mMol/L (135-145)
[2017-02-19] MEDS ORDERED: MAG-OX-400(241400 MG PO (09:01)
[2017-02-19] MEDS ORDERED: MEXITIL150 MG PO (09:04)
== END 2017-02-19 10:30 | disposition disaster alternative care site (69) | DRG 310 ==
LOC: GPCU 11:47
PROVIDERS: Internal Medicine; ADMIT Internal Medicine
PROC: 5A2204Z Restoration of Cardiac Rhythm, Single (ICD-10-PCS; principal; 2017-02-15)
DX: I47.2 Ventricular tachycardia (principal); I27.2 Other secondary pulmonary hypertension; I48.0 Paroxysmal atrial fibrillation; I25.10 Atherosclerotic heart disease of native coronary artery without angina pectoris; G47.33 Obstructive sleep apnea (adult) (pediatric); K21.9 Gastro-esophageal reflux disease without esophagitis; E03.9 Hypothyroidism, unspecified; I44.0 Atrioventricular block, first degree; I10 Essential (primary) hypertension; I08.3 Combined rheumatic disorders of mitral, aortic and tricuspid valves; Z87.891 Personal history of nicotine dependence; E87.6 Hypokalemia; R09.02 Hypoxemia
CPT/HCPCS: J0282; J7060